=== PATIENT | male | born 1960 | race Caucasian/White ===

== ENCOUNTER 2020-05-25 05:34 | Emergency (ER) | payer OTHER ==
[~2020-05-25] VITALS: Ht 182.9 cm; Wt 95.3 kg
[2020-05-25] MEDS ORDERED: NORCO 10-325 T1 EACH PO (05:48)
[2020-05-25 09:05] VITALS: BP 167/105
== END 2020-05-25 09:05 | disposition home or self-care (01) ==
LOC: ER 05:34
DX: S20.212A Contusion of left front wall of thorax, initial encounter (principal); S40.212A Abrasion of left shoulder, initial encounter; I10 Essential (primary) hypertension; E11.9 Type 2 diabetes mellitus without complications; E78.5 Hyperlipidemia, unspecified; Z79.899 Other long term (current) drug therapy; W18.39XA Other fall on same level, initial encounter; Y93.89 Activity, other specified; Y92.89 Other specified places as the place of occurrence of the external cause; Y99.8 Other external cause status

== ENCOUNTER 2020-08-30 21:47 | Emergency (ER) | payer OTHER ==
[~2020-08-30] VITALS: Ht 182.9 cm; Wt 100.7 kg
[~2020-08-30 21:47] MED LIST: NORCO 10-325 T1 EACH PO
[2020-08-30 21:49] VITALS: BP 142/102
[2020-08-30] MEDS ORDERED: METFORMIN PO (22:53)
[2020-08-30] MEDS ORDERED: JARDIANCE10 MG PO (22:53)
[2020-08-30] MEDS ORDERED: AMARYL2 M1 PO (22:53)
[2020-08-30] MEDS ORDERED: COZAAR 25 MG TA25 MG PO (22:53)
[2020-08-30] MEDS ORDERED: LIPITOR10 MG PO (22:54)
[2020-08-30] MEDS ORDERED: PRILOSEC PO (22:54)
[2020-08-30] MEDS ORDERED: GABAPENTIN600 M1 PO (22:55)
[2020-08-30] MEDS ORDERED: DESYREL150 MG PO (22:56)
[2020-08-30] MEDS ORDERED: DRIZALMA SPRINK20 MG PO (22:57)
[2020-08-30] MEDS ORDERED: REQUIP XL12 MG PO (22:57)
== END 2020-08-31 00:30 | disposition home or self-care (01) ==
LOC: ER 21:47
DX: M25.512 Pain in left shoulder (principal); M25.561 Pain in right knee; E11.9 Type 2 diabetes mellitus without complications; I10 Essential (primary) hypertension; E78.00 Pure hypercholesterolemia, unspecified; Z88.5 Allergy status to narcotic agent; Z91.040 Latex allergy status; W22.01XA Walked into wall, initial encounter; Y93.89 Activity, other specified; Y92.89 Other specified places as the place of occurrence of the external cause; Y99.8 Other external cause status

== ENCOUNTER 2021-02-08 16:59 | Emergency (ER) | payer OTHER ==
[~2021-02-08] VITALS: Ht 182.9 cm; Wt 101.6 kg
[~2021-02-08 16:59] MED LIST changes: +AMARYL2 M1 PO; +COZAAR 25 MG TA25 MG PO; +DESYREL150 MG PO; +DRIZALMA SPRINK20 MG PO; +GABAPENTIN600 M1 PO; +JARDIANCE10 MG PO; +LIPITOR10 MG PO; +METFORMIN PO; +PRILOSEC PO; +REQUIP XL12 MG PO
[2021-02-08 17:01] VITALS: BP 138/81
[2021-02-08] MEDS ORDERED: NORCO5 PO (18:37)
== END 2021-02-08 19:03 | disposition home or self-care (01) ==
LOC: ER 16:59
DX: S90.31XA Contusion of right foot, initial encounter (principal); M25.461 Effusion, right knee; M54.6 Pain in thoracic spine; E11.9 Type 2 diabetes mellitus without complications; I10 Essential (primary) hypertension; E78.00 Pure hypercholesterolemia, unspecified; Z79.899 Other long term (current) drug therapy; Z91.040 Latex allergy status; Z88.5 Allergy status to narcotic agent; W06.XXXA Fall from bed, initial encounter; Y93.89 Activity, other specified; Y92.89 Other specified places as the place of occurrence of the external cause; Y99.8 Other external cause status